=== PATIENT | male | born 2000 | race Caucasian/White ===

== ENCOUNTER 2022-06-08 18:02 | Emergency (ER) | payer OTHER ==
[~2022-06-08] VITALS: Ht 180.3 cm; Wt 78.5 kg
[2022-06-08] MEDS ORDERED: NS 1,000 ML IV ONE (20:30)
[2022-06-08] MEDS ORDERED: ONDANSETRON 4MG 2ML VIAL IV ONE (20:30)
[2022-06-08 20:51] LABS: BASO # 0.1 10^3/uL (0.0-0.2); BASO % 0.4 % (0.0-1.0); HEMATOCRIT 48.3 % (42.0-52.0); HEMOGLOBIN 16.9 g/dl (13.5-17.5); LYMPH # 0.8 10^3/uL (1.5-5.0); MEAN CORPUSCULAR HEMOGLOBIN 30.3 pg (27.0-33.0); MEAN CORPUSCULAR VOLUME 86.6 fl (80.0-96.0); MONO # 0.5 10^3/uL (0.0-0.8); MONO % 4.2 % (2.0-8.0); NEUTROPHILS # 10.3 10^3/uL (1.5-8.5); PLATELET COUNT, AUTOMATED 234 10^3/uL (150-450); RED BLOOD COUNT 5.58 10^6/uL (4.30-6.10); WHITE BLOOD COUNT 11.7 10^3/uL (4.0-10.0)
[2022-06-08 21:30] LABS: BLOOD UREA NITROGEN 7 MG/DL (9-23); CALCIUM LEVEL 9.4 MG/DL (8.5-10.1); CARBON DIOXIDE LEVEL 28 MMOL/L (20-31); CHLORIDE LEVEL 97 MMOL/L (98-107); CREATININE FOR GFR 0.88 MG/DL (0.70-1.30); GLOMERULAR FILTRATION RATE > 60.0 (>60); GLUCOSE, FASTING 118 MG/DL (60-100); POTASSIUM SERUM 4.6 MMOL/L (3.5-5.1); SODIUM LEVEL 135 MMOL/L (136-145)
[2022-06-08 23:00] VITALS: BP 143/84
== END 2022-06-08 23:00 | disposition home or self-care (01) ==
LOC: M ED 18:02
DX: R11.0 Nausea (principal); R42 Dizziness and giddiness
CPT/HCPCS: 80048; 85025; 96374; 99284; J2405

== ENCOUNTER 2022-08-15 20:21 | Emergency (ER) | payer OTHER ==
[~2022-08-15] VITALS: Ht 177.8 cm; Wt 72.7 kg
[2022-08-15] MEDS ORDERED: LIDOCAINE 2% MDV 20ML VIAL SC ONE (22:15)
[2022-08-15 22:46] VITALS: BP 131/67
== END 2022-08-15 22:48 | disposition home or self-care (01) ==
LOC: M ED 20:21
DX: S61.217A Laceration without foreign body of left little finger without damage to nail, initial encounter (principal); W22.8XXA Striking against or struck by other objects, initial encounter; Y92.009 Unspecified place in unspecified non-institutional (private) residence as the place of occurrence of the external cause